=== PATIENT | male | born 1985 | race African-American/Black ===

== ENCOUNTER 2024-12-26 23:14 | Emergency (ER) | payer MEDICAID ==
[~2024-12-26] VITALS: Ht 170.2 cm; Wt 74.4 kg
[2024-12-26 23:21] VITALS: PULSE 87; RESP 16; O2SAT 100
[2024-12-26 23:22] VITALS: BP 139/91; TEMP 36.7; O2SAT 99
== END 2024-12-27 00:07 | disposition left against medical advice (07) ==
LOC: ER 23:14
DX: H92.03 Otalgia, bilateral (principal); H53.8 Other visual disturbances
CPT/HCPCS: 99281